=== PATIENT | female | born 1990 | race Two or more races ===

== ENCOUNTER 2017-09-07 09:51 | Day surgery (SDC) | payer OTHER ==
[2017-09-06 15:31] VITALS: BMI 25.6
[2017-09-07] MEDS ORDERED: PROPOFOL 20 ML ONE ×2 (11:16→11:36)
[2017-09-07] MEDS ORDERED: MIDAZOLAM HCL 2 MG/2 ML SINGLE DOSE VIAL ONE (11:17)
[2017-09-07] MEDS ORDERED: ACETAMINOPHEN 325 MG TABLET (FP) PO PRN (11:31)
[2017-09-07] MEDS ORDERED: ONDANSETRON 4 MG/2 ML VIAL IVPUSH PRN (11:31)
[2017-09-07] MEDS ORDERED: IBUPROFEN 400 MG TABLET (FP) PO PRN (11:31)
[2017-09-07] MEDS ORDERED: oxyCODONE HCL 5 MG TABLET PO PRN (11:31)
--- NOTE | 2017-09-07 11:31 | HP ---
Admitting History and Physical - Admission History of Present Illness: 26 yo with hx/o irregular bleeding found to have endometrial polyp on SIS for hysteroscopy, D&C, polypectomy possible myomectomy History Source: Patient Limitations to Obtaining History: No Limitations - Past Medical History Cardiovascular: No: HTN Pulmonary: No: Asthma Hepatobiliary: Yes: Other (hx/o liver cyst) ...LMP: 08/19/17 ...LMP Comment: HEAVY, FREQUENT ...: No - Past Surgical History Additional Past Surgical History: Liver Cyst resection - Smoking History Smoking history: Current some day smoker Have you smoked in the past 12 months: Yes Aproximately how many cigarettes per day: 0 - Alcohol/Substance Use Hx Alcohol Use: Yes (SOCIALLY) History of Substance Use: reports: None Home Medications - Allergies Allergies/Adverse Reactions: Allergies Allergy/AdvReac Type Severity Reaction Status Date / Time No Known Drug Allergies Allergy Verified 09/06/17 15:31 - Home Medications Home Medications: Ambulatory Orders Naproxen Sodium [Aleve] 1 tab PO PRN PRN 09/06/17 Family Disease History - Family Disease History Family History: Denies Review of Systems - Review of Systems Constitutional: reports: No Symptoms Neck: reports: No Symptoms Cardiovascular: reports: No Symptoms Respiratory: reports: No Symptoms Genitourinary: reports: No Symptoms Musculoskeletal: reports: No Symptoms Integumentary: reports: No Symptoms Endocrine: reports: No Symptoms Hematology/Lymphatic: reports: No Symptoms Psychiatric: reports: No Symptoms Physical Examination Vital Signs: Vital Signs Temperature 98.2 F 09/07/17 10:41 Pulse Rate 69 09/07/17 10:41 Respiratory Rate 18 09/07/17 10:41 Blood Pressure 107/69 09/07/17 10:41 O2 Sat by Pulse Oximetry (%) 99 09/07/17 10:43 Constitutional: Yes: Well Nourished, No Distress, Calm Cardiovascular: Yes: Regular Rate and Rhythm Respiratory: Yes: Regular, CTA Bilaterally Gastrointestinal: Yes: Normal Bowel Sounds, Soft Edema: No Assessment/Plan 26 yo with irregular bleeding, menorrhagia, suspicious of endometrial polyp for hysteroscopy, D&C, polypectomy possible myomectomy 1. Consents reviewed and signed 2. Routine labs reviewed 3. SCDs for DVT PPX 4. Will proceed to OR
[2017-09-07] MEDS ORDERED: ceFAZolin SODIUM 1 GM VIAL IVPB ONE (11:43)
[2017-09-07] MEDS ORDERED: ceFAZolin SODIUM 1 GM VIAL ONE (11:43)
[2017-09-07] MEDS ORDERED: ONDANSETRON 4 MG/2 ML VIAL ONE (11:43)
[2017-09-07] MEDS ORDERED: DEXAMETHASONE SOD PHOSPHATE 4 MG/1 ML VIAL ONE (11:43)
[2017-09-07] MEDS ORDERED: KETOROLAC TROMETHAMINE 30 MG/1 ML VIAL ONE (12:14)
--- NOTE | 2017-09-07 12:26 | OP ---
Operative Note - Note: Operative Date: 09/07/17 Pre-Operative Diagnosis: irregular bleeding, menorrhagia, endometrial polyp Operation: hysteroscopy, dilation and curettage, polypectomy with Endosee device Findings: large endometrial polyp, secretory endometrium Post-Operative Diagnosis: Same as Pre-op Surgeon: Luli Garrido Anesthesiologist/PLANNING ADVISOR: Darron Martin Anesthesia: General Estimated Blood Loss (mls): 5 Operative Report Dictated: Yes
--- NOTE | 2017-09-07 14:20 | OP ---
DATE OF OPERATION: 09/07/2017 ATTENDING PHYSICIAN: Luli Garrido M.D. PREOPERATIVE DIAGNOSIS: Irregular bleeding, menorrhagia and endometrial polyp. POSTOPERATIVE DIAGNOSIS: Irregular bleeding, menorrhagia and endometrial polyp. SURGEON: Luli Garrido M.D. ANESTHESIA: General. ANESTHESIOLOGIST: Darron Martin MD SURGERY: Hysteroscopy, dilation and curettage, polypectomy with TruClear device. ESTIMATED BLOOD LOSS: Was 5 mL FLUID DEFICIT: 200 mL INDICATIONS: Patient is a 26-year-old with the history of irregular bleeding and menorrhagia with endometrial polyp on ultrasound for surgical management. She was counseled regarding the risks, benefits, alternatives and complications of the procedure including vaginal bleeding, damage to surrounding organs such as bowel , bladder, uterine perforation, scarring, bleeding, infertility. She expressed understanding and brought to the operating room. DESCRIPTION OF PROCEDURE: When anesthesia was found to be adequate, patient was prepped and draped in normal sterile fashion in the dorsal lithotomy position using Raúl stirrups. A weighted speculum was placed in the posterior portion of the patient's vagina. A Stover retractor was placed in the anterior portion of the patient's vagina. The anterior lip of the cervix was grasped using an Allis clamp and the cervix was noted to be dilated to accommodate a size 17 Hanks dilator. The hysteroscope was placed. Large endometrial polyp was noted with a fluffy secretory endometrium noted. The TruClear device was placed with the polyp cutter and the polyp was resected under direct visualization. All instruments were removed from the patient's vagina. Gentle sharp curetting was performed and specimens were sent to Pathology. All the instruments were removed from the patient's vagina. Patient was awoken from anesthesia and brought to the recovery room. Patient was brought to Recovery in stable condition. Nacho [id number] MTDD
[2017-09-07 14:24] VITALS: TEMP 97.9
[2017-09-07] MEDS ORDERED: LACTATED RINGERS SOLUTION 1,000 ML IV SCH (14:45)
[2017-09-07 15:09] VITALS: BP 111/88; PULSE 75
--- NOTE | 2017-09-08 17:47 | PATH ---
Surgical Pathology Report Patient Name: MAGALY BLAKELY [facility]. Rec. #: [id number] /Age/Gender: 1990 (Age: 26) / F Account: [id number] Location: [facility] Taken: 09/07/2017 Received: 09/07/2017 Reported: 09/08/2017 Physicians: Luli Garrido Specimen(s) Received A: ENDOMETRIAL CURETTINGS B: ENDOMETRIUM POLYP Clinical History Endometrial polyp Final Diagnosis A. ENDOMETRIAL CURETTINGS, DILATION AND CURETTAGE: FRAGMENTS OF ENDOMETRIAL POLYP AND SCANT BENIGN CERVICAL TISSUE. B. ENDOMETRIAL POLYP, POLYPECTOMY: FRAGMENTS OF ENDOMETRIAL POLYP. Electronically Signed Judy Meraz M.D. Gross Description A. Received in formalin labeled "endometrial curettings" are multiple fragments of pink-meeks hemorrhagic tissue measuring 3 x 2 x 0.7 cm in aggregate. Entire specimen submitted in one cassette. B. Received in formalin labeled "endometrial polyp" are multiple fragments of pink-meeks tissue measuring 2 x 2 x 0.5 cm in aggregate. Entire specimen submitted in one cassette. CLARE/09/07/2017 noé/09/07/2017
== END 2017-09-07 15:18 | disposition home or self-care (01) ==
LOC: JASU-SURG 09:51
PROVIDERS: ATTEND Obstetrics & Gynecology
PROC: 0UJD8ZZ Inspection of Uterus and Cervix, Via Natural or Artificial Opening Endoscopic (ICD-10-PCS; 2017-09-07)
PROC: 0UB97ZX Excision of Uterus, Via Natural or Artificial Opening, Diagnostic (ICD-10-PCS; principal; 2017-09-07 11:00)
PROC: 0UDB7ZX Extraction of Endometrium, Via Natural or Artificial Opening, Diagnostic (ICD-10-PCS; 2017-09-07 11:00)
DX: N92.0 Excessive and frequent menstruation with regular cycle (principal); N84.0 Polyp of corpus uteri
CPT/HCPCS: 84703; 86850; 86900; 86901; 88305-TC; 94760